=== PATIENT | female | born 2005 | race African-American/Black ===

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

== ENCOUNTER 2023-01-15 11:07 | Emergency (ER) | payer OTHER ==
[2023-01-15 11:32] VITALS: BP 130/67; PULSE 104; RESP 18; TEMP 99.3; BMI 21.4
== END 2023-01-15 12:42 | disposition home or self-care (01) ==
LOC: JER 11:07 → JERFT 11:07
DX: L73.9 Follicular disorder, unspecified (principal)
CPT/HCPCS: 36415; 87491; 87591; 99283-25

== ENCOUNTER 2023-06-13 12:14 | Emergency (ER) | payer OTHER ==
[2023-06-13 13:16] VITALS: BP 108/74; PULSE 81; RESP 16; TEMP 98.3; BMI 20.5
[2023-06-13 15:23] LABS: BASO % 0.3 % (0-2.0); EOS % 0.6 % (0-4.5); HEMATOCRIT 38.1 % (32.4-45.2); HEMOGLOBIN 13.4 GM/dL (10.7-15.3); LYMPH % 18.9 % (8-40); MCH 30.6 pg (25.7-33.7); MCHC 35.1 g/dl (32.0-36.0); MEAN CELL VOLUME 87.3 fl (80-96); MEAN PLT VOLUME 8.1 fl (7.5-11.1); MONO % 4.9 % (3.8-10.2); NEUT % 75.3 % (42.8-82.8); PLATELET COUNT 227 10^3/uL (134-434); RBC 4.37 M/mm3 (3.60-5.2); RDW 12.8 % (11.6-15.6); WHITE BLOOD COUNT 9.9 K/mm3 (4.0-10.0)
[2023-06-13 15:30] LABS: URINE APPEARANCE CLEAR; URINE BILIRUBIN NEGATIVE (NEGATIVE); URINE COLOR YELLOW; URINE GLUCOSE (UA) NEGATIVE (NEGATIVE); URINE KETONE 3+ (NEGATIVE); URINE LEUK ESTERASE NEGATIVE (NEGATIVE); URINE NITRITE NEGATIVE (NEGATIVE); URINE PROTEIN NEGATIVE (NEGATIVE); URINE UROBILINOGEN 0.2 mg/dL (0.2-1.0)
[2023-06-13 15:44] LABS: CALCIUM 9.1 mg/dL (8.5-10.1)
[2023-06-13 15:45] LABS: ALBUMIN 4.1 g/dl (3.4-5.0)
[2023-06-13 15:47] LABS: CREATININE 0.6 mg/dL (0.55-1.3)
[2023-06-13 15:50] LABS: BILIRUBIN,TOTAL 0.5 mg/dL (0.2-1)
== END 2023-06-13 16:43 | disposition home or self-care (01) ==
LOC: JER 12:14
DX: O26.891 Other specified pregnancy related conditions, first trimester (principal); R10.2 Pelvic and perineal pain; R11.0 Nausea; Z3A.00 Weeks of gestation of pregnancy not specified
CPT/HCPCS: 36415; 76815; 80053; 81003; 84702; 85025; 87086; 99284-25

== ENCOUNTER 2023-07-01 09:31 | Emergency (ER) | payer OTHER ==
[2023-07-01 09:39] VITALS: BP 104/59; PULSE 89; RESP 18; TEMP 98.5; BMI 20.5
[2023-07-01] MEDS ORDERED: SODIUM CHLORIDE 0.9% 500 ML INFUS.BAG IV ONE (10:56)
[2023-07-01] MEDS ORDERED: ONDANSETRON 4 MG/2 ML VIAL IVPB ONE (10:56)
[2023-07-01] MEDS ORDERED: ONDANSETRON 4 MG/2 ML VIAL ONE (11:20)
[2023-07-01 11:27] LABS: PH,URINE 6.5 (5.0-8.0); URINE APPEARANCE CLEAR; URINE BILIRUBIN NEGATIVE (NEGATIVE); URINE COLOR YELLOW; URINE GLUCOSE (UA) NEGATIVE (NEGATIVE); URINE KETONE TRACE (NEGATIVE); URINE LEUK ESTERASE NEGATIVE (NEGATIVE); URINE NITRITE NEGATIVE (NEGATIVE); URINE PROTEIN NEGATIVE (NEGATIVE)
[2023-07-01 11:28] LABS: BASO % 0.3 % (0-2.0); EOS % 0.9 % (0-4.5); HEMATOCRIT 37.9 % (32.4-45.2); HEMOGLOBIN 12.9 GM/dL (10.7-15.3); LYMPH % 15.5 % (8-40); MCH 30.4 pg (25.7-33.7); MCHC 33.9 g/dl (32.0-36.0); MEAN CELL VOLUME 89.5 fl (80-96); MEAN PLT VOLUME 8.1 fl (7.5-11.1); MONO % 5.7 % (3.8-10.2); NEUT % 77.6 % (42.8-82.8); PLATELET COUNT 189 10^3/uL (134-434); RBC 4.24 M/mm3 (3.60-5.2); RDW 12.9 % (11.6-15.6); WHITE BLOOD COUNT 8.9 K/mm3 (4.0-10.0)
[2023-07-01 11:57] LABS: POTASSIUM 4.1 mmol/L (3.5-5.1)
[2023-07-01 12:03] LABS: ALBUMIN 3.7 g/dl (3.4-5.0); CALCIUM 8.8 mg/dL (8.5-10.1)
[2023-07-01 12:06] LABS: CREATININE 0.5 mg/dL (0.55-1.3)
[2023-07-01 12:08] LABS: BILIRUBIN,TOTAL 0.5 mg/dL (0.2-1); TOT PROT 7.6 g/dl (6.4-8.2)
== END 2023-07-01 13:55 | disposition home or self-care (01) ==
LOC: JERFT 09:31 → JER 09:31 → JERFT 13:55
PROC: 3E033GC Introduction of Other Therapeutic Substance into Peripheral Vein, Percutaneous Approach (ICD-10-PCS; principal; 2023-07-01)
DX: O21.0 Mild hyperemesis gravidarum (principal); O26.891 Other specified pregnancy related conditions, first trimester; R51.9 Headache, unspecified; R63.0 Anorexia; Z3A.13 13 weeks gestation of pregnancy
CPT/HCPCS: 36415; 80053; 81003; 84702; 85025; 87086; 99284-25

== ENCOUNTER 2023-09-10 13:20 | Emergency (ER) | payer OTHER ==
[2023-09-10 13:25] VITALS: RESP 18; BMI 22.8
[2023-09-10] MEDS ORDERED: DEXTROSE 5%-LACTATED RINGERS 1,000 ML IV SCH ×3 (14:15→15:34)
[2023-09-10 15:27] LABS: URINE APPEARANCE CLEAR; URINE BILIRUBIN NEGATIVE (NEGATIVE); URINE COLOR YELLOW; URINE GLUCOSE (UA) NEGATIVE (NEGATIVE); URINE KETONE 4+ (NEGATIVE); URINE LEUK ESTERASE NEGATIVE (NEGATIVE); URINE NITRITE NEGATIVE (NEGATIVE); URINE PROTEIN NEGATIVE (NEGATIVE)
[2023-09-10 15:30] LABS: BASO % 0.1 % (0-2.0); EOS % 0.5 % (0-4.5); HEMATOCRIT 37.1 % (32.4-45.2); HEMOGLOBIN 12.6 GM/dL (10.7-15.3); MCH 31.3 pg (25.7-33.7); MCHC 34.1 g/dl (32.0-36.0); MEAN CELL VOLUME 91.9 fl (80-96); MEAN PLT VOLUME 8.3 fl (7.5-11.1); MONO % 3.7 % (3.8-10.2); NEUT % 90.7 % (42.8-82.8); PLATELET COUNT 177 10^3/uL (134-434); RBC 4.03 M/mm3 (3.60-5.2); RDW 13.3 % (11.6-15.6); WHITE BLOOD COUNT 8.8 K/mm3 (4.0-10.0)
[2023-09-10 15:49] LABS: POTASSIUM 3.8 mmol/L (3.5-5.1)
[2023-09-10 15:51] LABS: CALCIUM 8.6 mg/dL (8.5-10.1)
[2023-09-10 15:52] LABS: ALBUMIN 3.2 g/dl (3.4-5.0); BLOOD UREA NITROGEN 9.5 mg/dL (7-18); MAGNESIUM 1.5 mg/dL (1.8-2.4)
[2023-09-10 15:54] LABS: CREATININE 0.5 mg/dL (0.55-1.3)
[2023-09-10 15:56] LABS: BILIRUBIN,TOTAL 0.5 mg/dL (0.2-1); TOT PROT 7.1 g/dl (6.4-8.2)
[2023-09-10] MEDS ORDERED: MAGNESIUM 1GM/D5W - 1 GM/100 ML IVPB IVPB ONE ×2 (16:44→16:52)
[2023-09-10 18:10] VITALS: BP 112/68; PULSE 101; TEMP 98.2
== END 2023-09-10 19:31 | disposition home or self-care (01) ==
LOC: JER 13:20
PROC: 3E033GC Introduction of Other Therapeutic Substance into Peripheral Vein, Percutaneous Approach (ICD-10-PCS; principal; 2023-09-10)
DX: O26.892 Other specified pregnancy related conditions, second trimester (principal); R10.9 Unspecified abdominal pain; O21.9 Vomiting of pregnancy, unspecified; Z3A.21 21 weeks gestation of pregnancy; Z20.822 Contact with and (suspected) exposure to COVID-19
CPT/HCPCS: 0241U-QW; 36415; 80053; 81003; 82962; 83690; 83735; 85025; 87086; 99284-25

== ENCOUNTER 2024-02-05 11:48 | Inpatient (IN) | payer OTHER ==
[2024-02-05] MEDS: ELECTROLYTE-148 SOLN 1,000 ML IV SCH (12:30)
[2024-02-05 12:49] LABS: BASO % 0.2 % (0-2.0); EOS % 0.3 % (0-4.5); HEMATOCRIT 35.1 % (32.4-45.2); HEMOGLOBIN 11.8 GM/dL (10.7-15.3); LYMPH % 16.3 % (8-40); MCH 29.2 pg (25.7-33.7); MCHC 33.5 g/dl (32.0-36.0); MEAN CELL VOLUME 87.2 fl (80-96); MONO % 6.4 % (3.8-10.2); NEUT % 76.8 % (42.8-82.8); PLATELET COUNT 151 10^3/uL (134-434); RBC 4.02 M/mm3 (3.60-5.2); RDW 14.1 % (11.6-15.6); WHITE BLOOD COUNT 9.2 K/mm3 (4.0-10.0)
[2024-02-05 12:54] VITALS: BMI 28.9
[2024-02-05 12:58] LABS: INR 0.95 (0.83-1.09); PROTHROMBIN TIME (PATIENT) 10.9 SEC (9.7-13.0)
[2024-02-05 13:01] LABS: ACTIVATED PTT 27.2 SECONDS (25.2-36.5)
[2024-02-05 13:09] LABS: POTASSIUM 3.6 mmol/L (3.5-5.1)
[2024-02-05 13:12] LABS: CALCIUM 8.5 mg/dL (8.5-10.1)
[2024-02-05 13:13] LABS: BLOOD UREA NITROGEN 7.4 mg/dL (7-18)
[2024-02-05 13:16] LABS: CREATININE 0.7 mg/dL (0.55-1.3)
[2024-02-05] MEDS ORDERED: FENTANYL/BUPIVACAINE/NS/PF - PCEA - 50 ML DISP.SYRIN EP ONE ×2 (13:22→18:15)
[2024-02-05] MEDS: FENTANYL/BUPIVACAINE/NS/PF - PCEA - 50 ML DISP.SYRIN EP SCH (13:50)
[2024-02-05] MEDS ORDERED: OXYTOCIN 30 UNITS in 0.9% NS 30 UNIT/500 ML INFUS.BAG IVPB ONE (14:51)
[2024-02-05] MEDS: OXYTOCIN 30 UNITS in 0.9% NS 30 UNIT/500 ML INFUS.BAG IVPB SCH (14:56)
[2024-02-05] MEDS ORDERED: NALOXONE HCL 0.4 MG/ML VIAL IVPUSH PRN (15:16)
[2024-02-05] MEDS ORDERED: OXYTOCIN 20 UNITS in 0.9% NS 20 UNIT/1,000 ML INFUS.BAG IV ONE (19:00)
[2024-02-05] MEDS ORDERED: LIDOCAINE HCL 1% PRESERVATIVE FREE - 30ML VIAL ONE (19:01)
[2024-02-05] MEDS: OXYTOCIN 20 UNITS in 0.9% NS 20 UNIT/1,000 ML INFUS.BAG IV SCH (19:27)
[2024-02-05] MEDS ORDERED: WITCH HAZEL 50% (TUCKS) 40 PAD/JAR PAD TP PRN (19:41)
[2024-02-05] MEDS ORDERED: BENZOCAINE 28 GM HEMORRHOIDAL OINTMENT TP PRN (19:41)
[2024-02-05] MEDS ORDERED: BISACODYL 10 MG SUPP.RECT RC PRN (19:41)
[2024-02-05] MEDS ORDERED: BENZOCAINE 20% 57 GM BOTTLE TP PRN (19:41)
[2024-02-05] MEDS ORDERED: IBUPROFEN 600 MG TABLET (FP) PO PRN (19:41)
[2024-02-05] MEDS ORDERED: ACETAMINOPHEN 325 MG TABLET (FP) PO PRN (19:41)
[2024-02-05] MEDS ORDERED: METHYLERGONOVINE MALEATE 0.2 MG/1 ML AMP IM PRN (19:41)
[2024-02-05 23:10] VITALS: RESP 18
[2024-02-06 07:56] LABS: BASO % 0.4 % (0-2.0); EOS % 0.5 % (0-4.5); HEMATOCRIT 31.1 % (32.4-45.2); HEMOGLOBIN 10.4 GM/dL (10.7-15.3); LYMPH % 11.7 % (8-40); MCHC 33.4 g/dl (32.0-36.0); MEAN CELL VOLUME 87.1 fl (80-96); MEAN PLT VOLUME 8.7 fl (7.5-11.1); MONO % 7.1 % (3.8-10.2); NEUT % 80.3 % (42.8-82.8); PLATELET COUNT 137 10^3/uL (134-434); RBC 3.57 M/mm3 (3.60-5.2); RDW 14.1 % (11.6-15.6); WHITE BLOOD COUNT 12.3 K/mm3 (4.0-10.0)
[2024-02-06] MEDS: PRENATAL VITAMINS W/ FOLIC ACID TABLET (FP) PO SCH (09:28)
[2024-02-06] MEDS ORDERED: SENNOSIDES/DOCUSATE COMBO (SENNA PLUS) TABLET (UD) PO PRN (22:00)
[2024-02-07 09:49] VITALS: BP 129/81; PULSE 60; TEMP 98.4
== END 2024-02-07 14:10 | disposition home or self-care (01) | DRG 560 ==
LOC: JDEL 11:48 → JLDR 12:25 → J3W 22:15
PROVIDERS: ADMIT Obstetrics & Gynecology; ATTEND Obstetrics & Gynecology
PROC: 10E0XZZ Delivery of Products of Conception, External Approach (ICD-10-PCS; principal; 2024-02-05)
PROC: 0HQ9XZZ Repair Perineum Skin, External Approach (ICD-10-PCS; 2024-02-05)
PROC: 10907ZC Drainage of Amniotic Fluid, Therapeutic from Products of Conception, Via Natural or Artificial Opening (ICD-10-PCS; 2024-02-05)
DX: O48.0 Post-term pregnancy (principal); O70.0 First degree perineal laceration during delivery; O77.0 Labor and delivery complicated by meconium in amniotic fluid; Z3A.40 40 weeks gestation of pregnancy; Z37.0 Single live birth
CPT/HCPCS: 36415; 59409; 80048; 85025; 85610; 85730; 86780; 86850; 86900; 86901